=== PATIENT | female | born 1970 | race Caucasian/White ===

== ENCOUNTER 2017-06-13 16:34 | Emergency (ER) | payer OTHER ==
[2017-06-13 17:04] VITALS: BP 125/81; PULSE 92; TEMP 98.3; BMI 23.3
--- NOTE | 2017-06-13 17:04 | PDOC ---
Rapid Medical Evaluation Chief Complaint: Pain Time Seen by Provider: 06/13/17 17:02 Medical Evaluation: Allergies Allergy/AdvReac Type Severity Reaction Status Date / Time No Known Allergies Allergy Verified 06/13/17 16:58 06/13/17 17:02 The patient presents with a chief complaint of: Swelling and pain to the right fifth finger. Flexed. Pain to the right thumb. Has appointment with doctor on . ] I have performed a brief in-person evaluation of this patient. Pertinent physical exam findings: vss, [Right fifth finger, in flexed position. Unable to straighten. ] I have ordered the following: [Xray right hand] The patient will proceed to the ED for further evaluation. Discharge Disposition - Diagnosis Flexion deformity of finger - Referrals - Patient Instructions - Post Discharge Activity
--- NOTE | 2017-06-13 18:23 | PDOC ---
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 Patient states she noticed some pain to her right hand approximately 2 weeks ago and has gotten worse but denies fever, chills, nausea/vomiting, extremity numbness/tingling. Patient is unsure of any injury but noticed flexion of the right dip immediately while vigorously cleaning dishes at work. Pt states she just ate prior to coming into the ER and had a can of soda. Pt states she knows her glucose is high and refuses any tx here for hyperglycemia. Pt states she is very good with controlling her glucose at home. Timing/Duration: 1 week Past History - Past Medical History Allergies/Adverse Reactions: Allergies Allergy/AdvReac Type Severity Reaction Status Date / Time No Known Allergies Allergy Verified 06/13/17 16:58 COPD: No Diabetes: Yes HTN: Yes Hypercholesterolemia: Yes - Suicide/Smoking/Psychosocial Hx Smoking History: Never smoked Information on smoking cessation initiated: No Hx Alcohol Use: No Drug/Substance Use Hx: No Review of Systems - Review of Systems Able to Perform ROS?: Yes Comments:: 06/13/17 18:22 CONSTITUTIONAL: Absent: fever, chills, diaphoresis, generalized weakness, malaise, loss of appetite CARDIOVASCULAR: Absent: chest pain, loss of consciousness, palpitations, irregular heart rate, peripheral edema RESPIRATORY: Absent: cough, shortness of breath, dyspnea with exertion, orthopnea, wheezing, stridor, hemoptysis MUSCULOSKELETAL: +right 5th digit pain/flexed Absent: myalgia, arthralgia, joint swelling SKIN: Absent: rash, itching, pallor HEMATOLOGIC/IMMUNOLOGIC: Absent: easy bleeding, easy bruising, lymphadenopathy, frequent infections Is the patient limited Pashto proficient: No *Physical Exam - Vital Signs Last Vital Signs Temp Pulse Resp BP Pulse Ox 98.3 F 92 H 18 125/81 100 06/13/17 16:59 06/13/17 16:59 06/13/17 16:59 06/13/17 16:59 06/13/17 16:59 - Physical Exam Comments: 06/13/17 18:22 GENERAL: Well developed, well nourished. Awake and alert. No acute distress. CARDIOVASCULAR: Regular rate and rhythm. No murmurs, rubs, or gallops. Distal pulses are 2+ and symmetric. PULMONARY: No evidence of respiratory distress. Lungs clear to auscultation bilaterally. No wheezing, rales or rhonchi. ABDOMINAL: Soft. Non-tender. Non-distended. No rebound or guarding. No organomegaly. Normoactive bowel sounds. MUSCULOSKELETAL +Right 5th digit; flexed at dip/neg pain on palp/neg swelling/neg erythematous Cap refill <2sec EXCLUDING RIGHT 5TH DIGIT: Normal range of motion at all joints. No bony deformities or tenderness. No CVA tenderness. EXTREMITIES: No cyanosis. No clubbing. No edema. No calf tenderness. SKIN: Warm and dry. Normal capillary refill. No rashes. No jaundice. NEUROLOGICAL: Alert, awake, appropriate. Cranial nerves 2-12 intact. No deficits to light touch and temperature in face, upper extremities and lower extremities. No motor deficits in the in face, upper extremities and lower extremities. Normoreflexic in the upper and lower extremities. Normal speech. Toes are down- going bilaterally. Gait is normal without ataxia. ED Treatment Course - LABORATORY CBC & Chemistry Diagram: 06/13/17 19:00 06/13/17 19:00 - RADIOLOGY Radiograph Interpretation: 06/13/17 19:18 Xrau right hand: 3v neg fx/dislocations/ 5th digit flexed *DC/Admit/Observation/Transfer Diagnosis at time of Disposition: Hyperglycemia Flexion deformity of finger Qualifiers: Laterality: right Qualified Code(s): M21.241 - Flexion deformity, right finger joints Mallet finger Qualifiers: Laterality: right Qualified Code(s): M20.011 - Mallet finger of right finger(s) - Discharge Dispostion Disposition: HOME Condition at time of disposition: Stable Admit: No - Referrals Referrals: Jsutin Meraz MD [Staff Physician] - - Patient Instructions Printed Discharge Instructions: DI for Mallet Finger Additional Instructions: Ice; 20 mins on alternating with 20 mins off for 48 hours while awake. Rest Elevate Follow up with your orthopedic surgeon or the one listed on the discharge form. Return to the ER for severe/persistent/worsening symptoms, extremity numbness/ tingling sensation. Must follow up with your physician/carbonation tester within 48 hours. Pt aware of her glucose in the ER Print Language: POLISH - Post Discharge Activity
[2017-06-13 19:06] LABS: BASO % 0.8 % (0-2.0); EOS % 4.3 % (0-4.5); HEMATOCRIT 39.9 % (32.4-45.2); HEMOGLOBIN 13.3 GM/dL (10.7-15.3); MCH 28.1 pg (25.7-33.7); MCHC 33.3 g/dl (32.0-36.0); MEAN CELL VOLUME 84.4 fl (80-96); MEAN PLT VOLUME 9.1 fl (7.5-11.1); MONO % 7.3 % (3.8-10.2); NEUT % 65.6 % (42.8-82.8); PLATELET COUNT 303 K/MM3 (134-434); RBC 4.73 M/mm3 (3.60-5.2); RDW 13.8 % (11.6-15.6); WHITE BLOOD COUNT 7.4 K/mm3 (4.0-10.0)
[2017-06-13 19:51] LABS: ALBUMIN 3.6 g/dl (3.4-5.0); ALK PHOS 95 U/L (45-117); ANION GAP 7 (8-16); BILIRUBIN,TOTAL 0.3 mg/dL (0.2-1.0); BLOOD UREA NITROGEN 17 mg/dL (7-18); CALCIUM 9.1 mg/dL (8.5-10.1); CHLORIDE 103 mmol/L (98-107); CO2 27 mmol/L (21-32); CREATININE 0.6 mg/dL (0.55-1.02); POTASSIUM 4.2 mmol/L (3.5-5.1); SGOT/AST 15 U/L (15-37); SGPT/ALT 28 U/L (12-78); SODIUM 137 mmol/L (136-145); TOT PROT 7.9 g/dl (6.4-8.2)
[2017-06-13 19:56] LABS: GLUCOSE,RANDOM 336 mg/dL (74-106)
== END 2017-06-13 19:00 | disposition home or self-care (01) ==
LOC: JERFT 16:34
DX: M20.011 Mallet finger of right finger(s) (principal); M21.241 Flexion deformity, right finger joints; E11.65 Type 2 diabetes mellitus with hyperglycemia; I10 Essential (primary) hypertension; E78.00 Pure hypercholesterolemia, unspecified
CPT/HCPCS: 36415; 73130-TC-RT; 80053; 85025; 99281-25

== ENCOUNTER 2018-04-10 14:13 | Emergency (ER) | payer OTHER ==
[2018-04-10] MEDS ORDERED: ASPIRIN 81 MG CHEWABLE TABLETS PO ONE (14:22)
[2018-04-10 14:24] VITALS: TEMP 98.8; BMI 23.3
--- NOTE | 2018-04-10 14:25 | PDOC ---
Rapid Medical Evaluation Chief Complaint: Chest Pain Time Seen by Provider: 04/10/18 14:20 Medical Evaluation: Allergies Allergy/AdvReac Type Severity Reaction Status Date / Time No Known Allergies Allergy Verified 06/13/17 16:58 04/10/18 14:21 48 year old female c/o chest pain radiating to back x 3 days. worse at night aand pain is worse deep breath. denies smoking, recent travel, prolonged sitting. Pmhx: hypertension, diabetes PE: patient alert ox3. breath sounds, regular rate A: chest pain P: labs EKG chest xray patient to the ER for further management of care. 04/10/18 14:24 Discharge Disposition - Diagnosis Chest pain Qualifiers: Chest pain type: chest pain on breathing Qualified Code(s): R07.1 - Chest pain on breathing; R07.81 - Pleurodynia - Referrals - Patient Instructions - Post Discharge Activity
[2018-04-10] MEDS ORDERED: ASPIRIN 81 MG CHEWABLE TABLETS ONE (14:31)
[2018-04-10 15:17] LABS: BASO % 1.1 % (0-2.0); HEMOGLOBIN 12.1 GM/dL (10.7-15.3); LYMPH % 27.3 % (8-40); MCH 28.8 pg (25.7-33.7); MCHC 32.6 g/dl (32.0-36.0); MEAN CELL VOLUME 88.2 fl (80-96); MONO % 7.6 % (3.8-10.2); PLATELET COUNT 235 K/MM3 (134-434); RDW 13.5 % (11.6-15.6); WHITE BLOOD COUNT 6.2 K/mm3 (4.0-10.0)
[2018-04-10 15:31] LABS: INR 0.9 (0.83-1.09); PROTHROMBIN TIME (PATIENT) 10.6 SEC (9.7-13.0)
[2018-04-10 15:44] LABS: ALBUMIN 3.6 g/dl (3.4-5.0); ALK PHOS 90 U/L (45-117); ANION GAP 8 MMOL/L (8-16); BILIRUBIN,TOTAL 0.7 mg/dL (0.2-1); BLOOD UREA NITROGEN 16 mg/dL (7-18); CALCIUM 8.5 mg/dL (8.5-10.1); CHLORIDE 103 mmol/L (98-107); CO2 27 mmol/L (21-32); CREATININE 0.9 mg/dL (0.55-1.3); GLUCOSE,RANDOM 246 mg/dL (74-106); MAGNESIUM 1.9 mg/dL (1.8-2.4); POTASSIUM 4.1 mmol/L (3.5-5.1); SGOT/AST 18 U/L (15-37); SGPT/ALT 33 U/L (13-61); SODIUM 138 mmol/L (136-145); TOT PROT 7.2 g/dl (6.4-8.2)
--- NOTE | 2018-04-10 15:50 | PDOC ---
History of Present Illness - General Chief Complaint: Chest Pain Stated Complaint: CHEST PAIN Time Seen by Provider: 04/10/18 14:20 History Source: Patient Exam Limitations: No Limitations - History of Present Illness Initial Comments: 04/10/18 16:12 48y F DM, HTN, HL, persents with complaint of chest pain - the patient endorses intermittent sharp substernal chest pain since last night. Patient the pain lasts seconds to proximal 1 min, the patient denies associated diaphoresis, nausea, vomiting, cough, hemoptysis, fever, chills. The patient does note some shortness of breath associated with her chest pain and she does note that the pain seems to worsen a little bit with deep breaths more so this morning. The patient denies any lightheadedness. She never had this in the past. No known cardiac history No family history of cadiac history denies smoking, IVDU, cocaine use, no eto abuse Past History - Past Medical History Allergies/Adverse Reactions: Allergies Allergy/AdvReac Type Severity Reaction Status Date / Time No Known Allergies Allergy Verified 04/10/18 14:24 COPD: No Diabetes: Yes HTN: Yes Hypercholesterolemia: Yes - Suicide/Smoking/Psychosocial Hx Smoking History: Never smoked Hx Alcohol Use: No Drug/Substance Use Hx: No Review of Systems - Review of Systems Able to Perform ROS?: Yes Comments:: 04/10/18 16:16 Constitutional - no reported Fever, Chills, HEENT: no reported vision changes, sore throat Respiratory: no reported cough, sob, hemoptysis Cardiac: +chest pain, no reported palpitations, light headedness, leg swelling Abd/GI: no reported abd pain, nausea, vomiting, blood per rectum, melena, diarrhea : no reported dysuria, frequency, discharge Musculskelatal - no reported back pain, joint swelling skin - no reported bruising, erythema, rash neurological: no reported headache, numbness, focal weakness, tingling, ataxia, hematologic: no reported easy bruising, easy bleeding *Physical Exam - Vital Signs Last Vital Signs Temp Pulse Resp BP Pulse Ox 98.8 F 94 H 18 144/51 L 98 04/10/18 14:15 04/10/18 14:15 04/10/18 14:15 04/10/18 14:15 04/10/18 14:15 - Physical Exam Comments: 04/10/18 16:17 GENERAL: The patient is awake, alert, and fully oriented, Nontoxic - in no acute distress. HEAD: Normocephalic, atraumatic. EYES: extraocular movements intact, sclera anicteric, conjunctiva clear. ENT: Normal voice, Moist mucous membranes. NECK: Normal range of motion, supple LUNGS: Breath sounds equal, clear to auscultation bilaterally. No wheezes, no rhonchi, no rales. HEART: Regular rate and rhythm, normal S1 and S2 without murmur, rub or gallop. ABDOMEN: Soft, nontender, normoactive bowel sounds. No guarding, no rebound. . No CVA tenderness EXTREMITIES: Normal range of motion, no edema. No clubbing or cyanosis. No cords, erythema, or tenderness. NEUROLOGICAL: No facial assymetry, Normal speech, PSYCH: Normal mood, normal affect. SKIN: Warm, Dry, normal turgor, Heart Score/ECG Review - ECG Impressions Comment:: 04/10/18 16:17 Twelve-lead EKG was performed and reviewed by me. There is normal sinus rhythm with a normal rate. Rate of 90 Incomplete right bundle branch block no prior ekg for comparison ED Treatment Course - LABORATORY CBC & Chemistry Diagram: 04/10/18 14:28 04/10/18 14:28 - ADDITIONAL ORDERS Additional order review: Laboratory Results 04/10/18 04/10/18 04/10/18 14:28 14:28 14:28 WBC RBC Hgb Hct MCV MCH MCHC RDW Plt Count MPV Absolute Neuts (auto) Neutrophils % Lymphocytes % Monocytes % Eosinophils % Basophils % Nucleated RBC % PT with INR 10.60 INR 0.90 D-Dimer < 215 Sodium 138 Potassium 4.1 Chloride 103 Carbon Dioxide 27 Anion Gap 8 BUN 16 Creatinine 0.9 Creat Clearance w eGFR > 60 Random Glucose 246 H Calcium 8.5 Magnesium 1.9 Total Bilirubin 0.7 AST 18 ALT 33 Alkaline Phosphatase 90 Creatine Kinase 172 Troponin I < 0.02 Total Protein 7.2 Albumin 3.6 04/10/18 14:28 WBC 6.2 RBC 4.20 Hgb 12.1 Hct 37.0 MCV 88.2 MCH 28.8 MCHC 32.6 RDW 13.5 Plt Count 235 D MPV 10.0 Absolute Neuts (auto) 3.6 Neutrophils % 58.0 Lymphocytes % 27.3 D Monocytes % 7.6 Eosinophils % 6.0 H Basophils % 1.1 Nucleated RBC % 0 PT with INR INR D-Dimer Sodium Potassium Chloride Carbon Dioxide Anion Gap BUN Creatinine Creat Clearance w eGFR Random Glucose Calcium Magnesium Total Bilirubin AST ALT Alkaline Phosphatase Creatine Kinase Troponin I Total Protein Albumin 04/10/18 14:28 RBC 4.20 MCV 88.2 MCHC 32.6 RDW 13.5 MPV 10.0 Neutrophils % 58.0 Lymphocytes % 27.3 D Monocytes % 7.6 Eosinophils % 6.0 H Basophils % 1.1 - Medications Given in the ED: ED Medications Discontinued Medications Generic Name Dose Route Start Last Admin Trade Name Freq PRN Reason Stop Dose Admin Aspirin 162 mg 04/10/18 14:22 04/10/18 14:34 Asa - PO 04/10/18 14:23 162 mg ONCE ONE Administration Medical Decision Making - Medical Decision Making 04/10/18 16:18 48-year-old female history of diabetes, hypertension, hypokalemia presenting with intermittent episodes of sharp chest pain lasting for seconds to 1 minute at a time associated with some shortness of breath sometimes pleuritic. no Family or personal history of cardiac disease. On exam the patient is well appearing,, no acute distress The patient was originally seen in our any with labs and d-dimer obtained. The patient's d-dimer is negative CBC, troponin, electrolytes are negative. We'll obtain second troponin at 4 hours. anticipate discharge with primary care and cardiology follow-up *DC/Admit/Observation/Transfer Diagnosis at time of Disposition: Chest pain Qualifiers: Chest pain type: chest pain on breathing Qualified Code(s): R07.1 - Chest pain on breathing - Referrals - Patient Instructions - Post Discharge Activity
--- NOTE | 2018-04-10 19:21 | PDOC ---
*Physical Exam - Vital Signs Last Vital Signs Temp Pulse Resp BP Pulse Ox 98.8 F 90 18 144/51 L 100 04/10/18 14:15 04/10/18 15:44 04/10/18 14:15 04/10/18 14:15 04/10/18 15:44 ED Treatment Course - LABORATORY CBC & Chemistry Diagram: 04/10/18 14:28 04/10/18 14:28 - ADDITIONAL ORDERS Additional order review: Laboratory Results 04/10/18 04/10/18 04/10/18 14:28 14:28 14:28 PT with INR 10.60 INR 0.90 D-Dimer < 215 Sodium 138 Potassium 4.1 Chloride 103 Carbon Dioxide 27 Anion Gap 8 BUN 16 Creatinine 0.9 Creat Clearance w eGFR > 60 Random Glucose 246 H Calcium 8.5 Magnesium 1.9 Total Bilirubin 0.7 AST 18 ALT 33 Alkaline Phosphatase 90 Creatine Kinase 172 Creatine Kinase Index 2.9 CK-MB (CK-2) 5.1 H Troponin I < 0.02 Total Protein 7.2 Albumin 3.6 04/10/18 14:28 RBC 4.20 MCV 88.2 MCHC 32.6 RDW 13.5 MPV 10.0 Neutrophils % 58.0 Lymphocytes % 27.3 D Monocytes % 7.6 Eosinophils % 6.0 H Basophils % 1.1 - Medications Given in the ED: ED Medications Discontinued Medications Generic Name Dose Route Start Last Admin Trade Name Darryl PRN Reason Stop Dose Admin Aspirin 162 mg 04/10/18 14:22 04/10/18 14:34 Asa - PO 04/10/18 14:23 162 mg ONCE ONE Administration Medical Decision Making - Medical Decision Making 04/10/18 19:19 Dr Jaquez was able to obtain a recent stress test and after discussion with Dr. 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
[2018-04-10 20:06] VITALS: BP 100/50; PULSE 80
--- NOTE | 2018-04-11 10:32 | EKG ---
Test Reason : Blood Pressure : / mmHG Vent. Rate : 090 BPM Atrial Rate : 090 BPM P-R Int : 134 ms QRS Dur : 098 ms QT Int : 360 ms P-R-T Axes : 061 022 054 degrees QTc Int : 440 ms NORMAL SINUS RHYTHM INCOMPLETE RIGHT BUNDLE BRANCH BLOCK SEPTAL INFARCT , AGE UNDETERMINED ABNORMAL ECG NO PREVIOUS ECGS AVAILABLE Confirmed by Conrad Higgins MD ([id number]) on 04/11/2018 10:32:36 AM Referred By: Confirmed By:Conrad Higgins MD
--- NOTE | 2018-04-11 11:36 | EKG ---
Test Reason : Blood Pressure : / mmHG Vent. Rate : 090 BPM Atrial Rate : 090 BPM P-R Int : 132 ms QRS Dur : 086 ms QT Int : 350 ms P-R-T Axes : 052 016 053 degrees QTc Int : 428 ms NORMAL SINUS RHYTHM SEPTAL INFARCT (CITED ON OR BEFORE 10-APR-2018) ABNORMAL ECG WHEN COMPARED WITH ECG OF 10-APR-2018 14:25, INCOMPLETE RIGHT BUNDLE BRANCH BLOCK IS NO LONGER PRESENT Confirmed by Conrad Higgins MD ([id number]) on 04/11/2018 11:36:25 AM Referred By: Confirmed By:Conrad Higgins MD
== END 2018-04-10 21:55 | disposition home or self-care (01) ==
LOC: JER 14:13
DX: R07.1 Chest pain on breathing (principal); I10 Essential (primary) hypertension; E11.9 Type 2 diabetes mellitus without complications; E78.00 Pure hypercholesterolemia, unspecified
CPT/HCPCS: 36415; 71046-TC-FY; 80053; 82550; 82553; 83735; 84484; 85025; 85379; 85610; 93005; 93010; 99285-25

== ENCOUNTER 2018-06-03 17:26 | Emergency (ER) | payer OTHER ==
[2018-06-03 17:59] VITALS: BP 115/63; PULSE 93; TEMP 98.5; BMI 23.3
[2018-06-03] MEDS ORDERED: KETOROLAC TROMETHAMINE 15 MG/ML VIAL IM ONE (19:35)
[2018-06-03] MEDS ORDERED: ALBUTEROL SO4 2.5/IPRATROPIUM 0.5 INH SOL 3 ML VIAL.NEB. NEB ONE ×2 (19:35→19:50)
--- NOTE | 2018-06-03 19:35 | PDOC ---
History of Present Illness - General Chief Complaint: Cold Symptoms Stated Complaint: PAIN, ACUTE Time Seen by Provider: 06/03/18 19:14 History Source: Patient Exam Limitations: No Limitations Past History - Travel Traveled outside of the country in the last 30 days: No Close contact w/someone who was outside of country & ill: No - Past Medical History Allergies/Adverse Reactions: Allergies Allergy/AdvReac Type Severity Reaction Status Date / Time No Known Allergies Allergy Verified 04/10/18 14:24 Home Medications: Ambulatory Orders Albuterol Sulfate Inhaler - [Ventolin HFA Inhaler -] 1 - 2 inh PO Q4H #1 inhaler 06/03/18 Guaifenesin AC [Robitussin AC] 10 ml PO HS #100 ml MDD 1 06/03/18 Methylprednisolone [Medrol Dose Reyes] 4 mg PO ASDIR #21 tablet 06/03/18 COPD: No Diabetes: Yes HTN: Yes Hypercholesterolemia: Yes - Immunization History Immunization Up to Date: Yes - Suicide/Smoking/Psychosocial Hx Smoking History: Never smoked Hx Alcohol Use: No Drug/Substance Use Hx: No Review of Systems - Review of Systems Able to Perform ROS?: Yes Comments:: 06/03/18 22:32 CONSTITUTIONAL: Absent: fever, chills, diaphoresis, generalized weakness, malaise, loss of appetite HEENT: Absent: rhinorrhea, nasal congestion, throat pain, throat swelling, difficulty swallowing, mouth swelling, ear pain, eye pain, visual Changes CARDIOVASCULAR: Absent: chest pain, loss of consciousness, palpitations, irregular heart rate, peripheral edema RESPIRATORY: Absent: cough, shortness of breath, dyspnea with exertion, orthopnea, wheezing, stridor, hemoptysis GASTROINTESTINAL: Absent: abdominal pain, abdominal distension, nausea, vomiting, diarrhea, constipation, melena, hematochezia GENITOURINARY: Absent: dysuria, frequency, urgency, hesitancy, hematuria, flank pain, genital pain MUSCULOSKELETAL: Absent: myalgia, arthralgia, joint swelling SKIN: Absent: rash, itching, pallor HEMATOLOGIC/IMMUNOLOGIC: Absent: easy bleeding, easy bruising, lymphadenopathy, frequent infections ENDOCRINE: Absent: unexplained weight gain, unexplained weight loss, heat intolerance, cold intolerance NEUROLOGIC: Absent: headache, focal weakness or paresthesias, dizziness, unsteady gait, seizure, mental status changes, bladder or bowel incontinence PSYCHIATRIC: Absent: anxiety, depression, suicidal or homicidal ideation, hallucinations. Is the patient limited Romansh proficient: No *Physical Exam - Vital Signs Last Vital Signs Temp Pulse Resp BP Pulse Ox 98.5 F 93 H 16 115/63 99 06/03/18 17:56 06/03/18 17:56 06/03/18 17:56 06/03/18 17:56 06/03/18 17:56 - Physical Exam Comments: 06/03/18 22:32 GENERAL: Well developed, well nourished. Awake and alert. No acute distress. HEENT: Normocephalic, atraumatic. PERRLA, EOMI. No conjunctival pallor. Sclera are non- icteric. Moist mucous membranes. Oropharynx is clear. NECK: Supple. Full ROM. No JVD. Carotid pulses 2+ and symmetric, without bruits. No thyromegaly. No lymphadenopathy. CARDIOVASCULAR: Regular rate and rhythm. No murmurs, rubs, or gallops. Distal pulses are 2+ and symmetric. PULMONARY: No evidence of respiratory distress. Lungs clear to auscultation bilaterally. No wheezing, rales or rhonchi. ABDOMINAL: Soft. Non-tender. Non-distended. No rebound or guarding. No organomegaly. Normoactive bowel sounds. MUSCULOSKELETAL Normal range of motion at all joints. No bony deformities or tenderness. No CVA tenderness. EXTREMITIES: No cyanosis. No clubbing. No edema. No calf tenderness. SKIN: Warm and dry. Normal capillary refill. No rashes. No jaundice. NEUROLOGICAL: Alert, awake, appropriate. Cranial nerves 2-12 intact. No deficits to light touch and temperature in face, upper extremities and lower extremities. No motor deficits in the in face, upper extremities and lower extremities. Normoreflexic in the upper and lower extremities. Normal speech. Toes are down- going bilaterally. Gait is normal without ataxia. PSYCHIATRIC: Cooperative. Good eye contact. Appropriate mood and affect. Moderate Sedation - Procedure Monitoring Vital Signs: Procedure Monitoring Vital Signs Temperature 98.5 F 06/03/18 17:56 Pulse Rate 93 H 06/03/18 17:56 Respiratory Rate 16 06/03/18 17:56 Blood Pressure 115/63 06/03/18 17:56 O2 Sat by Pulse Oximetry (%) 99 06/03/18 17:56 *DC/Admit/Observation/Transfer Diagnosis at time of Disposition: Bronchitis - Discharge Dispostion Disposition: HOME Condition at time of disposition: Stable Decision to Admit order: No - Referrals Referrals: Devin Caballero MD [Staff Physician] - - Patient Instructions Printed Discharge Instructions: DI for Acute Bronchitis Additional Instructions: You have bronchitis Your flu test was negative today Please take the albuterol inhaler every 4 hours Please take the medrol dose pack as prescribed You may use the cough syrup at night before bed. Do not drink or drive after taking this medication as it may make you sleepy Follow up with your primary care doctor this week Return to the ED for worsening cough, fever, vomiting, or if you have any changes in your symptoms Tienes bronquitis Tu prueba de gripe fue negativa hoy Por favor tome el inhalador de albuterol cada 4 horas. Por favor tome el paquete de dosis de medrol segn lo prescrito Puede usar el jarabe para la tos en la noche antes de acostarse. No afshin ni maneje despus de luther srinivasan medicamento, ya que puede causarle sueo Bree un seguimiento con fernandes mdico de atencin primaria esta semana. Regrese a la shania de emergencias para empeorar la tos, la fiebre, los vmitos o si tiene algn cambio en murali sntomas. Print Language: COOK ISLANDER - Post Discharge Activity Forms/Work/School Notes: Back to Work
[2018-06-03] MEDS ORDERED: KETOROLAC TROMETHAMINE 15 MG/ML VIAL ONE (19:50)
== END 2018-06-03 21:45 | disposition home or self-care (01) ==
LOC: JERFT 17:26
PROC: 3E0F7GC Introduction of Other Therapeutic Substance into Respiratory Tract, Via Natural or Artificial Opening (ICD-10-PCS; principal; 2018-06-03)
PROC: 3E0233Z Introduction of Anti-inflammatory into Muscle, Percutaneous Approach (ICD-10-PCS; 2018-06-03)
DX: J40 Bronchitis, not specified as acute or chronic (principal); I10 Essential (primary) hypertension; E11.9 Type 2 diabetes mellitus without complications; E78.00 Pure hypercholesterolemia, unspecified
CPT/HCPCS: 71046-TC-FY; 87804; 94640; 96372; 99281-25

== ENCOUNTER 2019-04-04 00:05 | Emergency (ER) | payer OTHER ==
[2019-04-04 00:58] VITALS: TEMP 97.9; BMI 24.7
[2019-04-04] MEDS ORDERED: SODIUM CHLORIDE 0.9% 500 ML INFUS.BAG IV ONE (01:18)
[2019-04-04] MEDS ORDERED: ONDANSETRON 4 MG/2 ML VIAL IVPUSH ONE (01:19)
[2019-04-04] MEDS ORDERED: ONDANSETRON 4 MG/2 ML VIAL ONE (01:23)
--- NOTE | 2019-04-04 01:27 | PDOC ---
History of Present Illness - General Chief Complaint: Chest Pain Stated Complaint: CHEST PAIN Time Seen by Provider: 04/04/19 01:09 - History of Present Illness Initial Comments: 04/04/19 01:20 49 y/o female with a PMH of IDDM, HTN who presents to our ED c/o 2 day h/o abdominal pain. Pain is sharp, diffuse, constant and associated with multiple episodes of yellowish emesis. No fevers/chills. Last BM prior to presentation today and was normal. No dysuria/hematuria. Reports she was evaluated at [facility] earlier this week, presents discharge instructions for generalized abdominal pain and gastroenteritis. at bedside states patient was told by the doctor at [facility] patient might be . LMP was four months previous. Past History - Past Medical History Allergies/Adverse Reactions: Allergies Allergy/AdvReac Type Severity Reaction Status Date / Time No Known Allergies Allergy Verified 04/04/19 00:58 Home Medications: Ambulatory Orders Ondansetron [Zofran *Odt*] 4 mg SL BID PRN #6 od.tablet 04/04/19 COPD: No Diabetes: Yes HTN: Yes Hypercholesterolemia: Yes - Immunization History Immunization Up to Date: Yes - Psycho Social/Smoking Cessation Hx Smoking History: Never smoked Hx Alcohol Use: No Drug/Substance Use Hx: No Review of Systems - Review of Systems Constitutional: No: Chills, Fever HEENTM: No: Recent change in vision Respiratory: No: Cough, Shortness of Breath Cardiac (ROS): No: Chest Pain, Lightheadedness, Palpitations ABD/GI: Yes: Nausea, Vomiting, Abdominal cramping. No: Constipated, Diarrhea : No: Burning, Hematuria *Physical Exam - Vital Signs Last Vital Signs Temp Pulse Resp BP Pulse Ox 97.9 F 94 H 18 193/91 H 99 04/04/19 00:57 04/04/19 00:57 04/04/19 00:57 04/04/19 00:57 04/04/19 00:57 - Physical Exam Comments: 04/04/19 01:24 Triage VS reviewed Non-toxic appearing Abdomen:Soft abdomen with mild epigastric TTP w/o peritoneal sign CV: S1, S2, RRR Respiratory: CLTA B/L, no wheeze Neuro: A&O x3, CN II-XII intact ED Treatment Course - LABORATORY CBC & Chemistry Diagram: 04/04/19 01:10 04/04/19 01:10 - RADIOLOGY Radiology Studies Ordered: Category Date Time Status GALLBLADDER US [US] Stat Ultrasound 04/04/19 01:19 Ordered Medical Decision Making - Medical Decision Making 04/04/19 01:27 49 y/o female with abdominal pain + multiple episodes emesis Hypertensive @ presentation w/epigastric TTP. Will evaluate for cholecystitis, bilary colic, gastroenteritis, . Also consider abdominal pain as anginal equivalent. PLAN: CBC/CMP, Lipase, Serum , Troponin, EKG, GB U/S, possible CTAP 04/04/19 03:18 Serum negative No acute cholecystitis on ultrasound Troponin (-) x1, EKG non-ischemic as documented in EKG section of EMR As patient continues to have persistent abdominal TTP will obtain CTAP with IV contrast 04/04/19 04:28 CTAP shows multiple uterine fibroids + 2.2 L ovarian cyst w/o free fluid UA pending 04/04/19 05:59 UA significant for 2+ blood - possibly 2/2 to fibroids; patient requires transfer worker evaluation as outpatient. Will discharge with transfer worker referral as well as referral to primary care (patient states her PMD recently retired). Return precautions discussed. Counseled to continue using Famotidine and Zofran prescribed from [facility]. I discussed the physical exam findings, ancillary test results and final diagnoses with the patient. I answered all of the patient's questions. The patient was satisfied with the care received and felt comfortable with the discharge plan and treatment plan. The patient will return to the Emergency Department with any new, persistent or worsening symptoms. Discharge - Discharge Information Problems reviewed: Yes Clinical Impression/Diagnosis: Abdominal pain Condition: Good Disposition: HOME - Admission No - Additional Discharge Information Prescriptions: Ondansetron [Zofran *Odt*] 4 mg SL BID PRN #6 od.tablet PRN Reason: Nausea And/Or Vomiting - Follow up/Referral Referrals: Devin Caballero MD [Staff Physician] - Angelina Singh MD [Staff Physician] - - Patient Discharge Instructions Patient Printed Discharge Instructions: DI for Uterine Fibroids Additional Instructions: Usted fue evaluado hoy por fernandes dolor abdominal. Max ecografa de la vescula biliar y un escner de fernandes abdomen no mostraron hallazgos preocupantes. En srinivasan momento est seguro para el verona en el hogar. Contine tomando los medicamentos recetados en fernandes visita a [facility]. Inez puede luther Motrin (hasta 3200 mg diarios en total) alternando con Tylenol ( hasta 4000 mg diarios en total) cada 4-6 horas para fernandes dolor. Debe ir a un mdico de atencin primaria para max evaluacin adicional y ellos pueden evaluarlo completamente por fernandes dolor. Hemos proporcionado max referencia a un mdico de atencin primaria, as kev max referencia a un gineclogo. Regrese al Departamento de Emergencias por cualquier sntoma nuevo / que empeore / relacionado. You were evaluated today for your abdominal pain. An ultrasound of your gallbladder and a cat scan of your abdomen showed no concerning findings. At this time you are safe for discharge home. Continue to take the medications prescribed by your visit to [facility]. You can also take Motrin (up to 3200 mg daily total) alternating with Tylenol (up to 4000 mg daily total) every 4-6 hours for your pain. You must go see a primary care doctor for further evaluation and they can fully evaluate you for your pain. We have provided a referral to a primary care doctor as well as a referral to a mill order scheduler. Return to the Emergency Department for any new/worsening/concerning symptoms. Print Language: AZERBAIJANI - Post Discharge Activity
[2019-04-04 01:34] LABS: HEMATOCRIT 36.3 % (32.4-45.2); HEMOGLOBIN 12.6 GM/dL (10.7-15.3); LYMPH % 10.1 % (8-40); MCH 31.3 pg (25.7-33.7); MCHC 34.8 g/dl (32.0-36.0); MEAN CELL VOLUME 89.9 fl (80-96); MONO % 5.9 % (3.8-10.2); PLATELET COUNT 198 K/MM3 (134-434); RBC 4.04 M/mm3 (3.60-5.2); RDW 12.9 % (11.6-15.6); WHITE BLOOD COUNT 10.5 K/mm3 (4.0-10.0)
--- NOTE | 2019-04-04 01:34 | PDOC ---
Attending Attestation - Resident Resident Name: Maria FernandaCher - ED Attending Attestation I have performed the following: I have examined & evaluated the patient, The case was reviewed & discussed with the resident, I agree w/resident's findings & plan - HPI HPI: 04/04/19 05:32 agree with resident hpi - Physicial Exam PE: 04/04/19 05:33 see resident exam - Medical Decision Making 04/04/19 05:33 49-year-old female with abdominal pain and vomiting CT scan of the abdomen significant only for fibroids and a small ovarian cyst Patient improved after IV fluids and Zofran Plan for DC with primary care follow-up, Zofran ODT as needed
[2019-04-04 02:32] LABS: ALBUMIN 3.7 g/dl (3.4-5.0); ALK PHOS 70 U/L (45-117); ANION GAP 8 MMOL/L (8-16); BILIRUBIN,TOTAL 1.2 mg/dL (0.2-1); BLOOD UREA NITROGEN 23.5 mg/dL (7-18); CALCIUM 8.9 mg/dL (8.5-10.1); CHLORIDE 103 mmol/L (98-107); CO2 27 mmol/L (21-32); CREATININE 0.8 mg/dL (0.55-1.3); GLUCOSE,RANDOM 273 mg/dL (74-106); LIPASE 70 U/L (73-393); SGOT/AST 25 U/L (15-37); SGPT/ALT 41 U/L (13-61); SODIUM 137 mmol/L (136-145); TOT PROT 7.4 g/dl (6.4-8.2)
[2019-04-04] MEDS ORDERED: ACETAMINOPHEN 1000 MG/100 ML VIAL (NON FORMULARY) IVPB ONE (03:12)
[2019-04-04] MEDS ORDERED: ACETAMINOPHEN INJECTION 100 ML IVPB ONE (03:14)
[2019-04-04 03:19] VITALS: BP 159/81; PULSE 92
[2019-04-04 05:26] LABS: URINE APPEARANCE Cloudy; URINE BILIRUBIN Negative (NEGATIVE); URINE COLOR Yellow; URINE GLUCOSE (UA) 2+ (NEGATIVE); URINE KETONE 2+ (NEGATIVE); URINE LEUK ESTERASE Negative (NEGATIVE); URINE NITRITE Negative (NEGATIVE); URINE PROTEIN 3+ (NEGATIVE); URINE UROBILINOGEN 0.2 mg/dL (0.2-1.0)
[2019-04-04 06:04] LABS: EPI CELLS 9 /HPF (0-5/HPF); HYALINE CASTS 9 /lpf (0-8); URINE BACTERIA 560 /hpf (NEGATIVE); URINE RBC 25 /hpf (0-4); URINE WBC 5 /hpf (0-5)
--- NOTE | 2019-04-05 12:40 | EKG ---
Test Reason : Blood Pressure : / mmHG Vent. Rate : 096 BPM Atrial Rate : 096 BPM P-R Int : 166 ms QRS Dur : 090 ms QT Int : 344 ms P-R-T Axes : 075 002 073 degrees QTc Int : 434 ms NORMAL SINUS RHYTHM SEPTAL INFARCT (CITED ON OR BEFORE 10-APR-2018) ABNORMAL ECG WHEN COMPARED WITH ECG OF 10-APR-2018 15:35, NO SIGNIFICANT CHANGE WAS FOUND Confirmed by TARA ZAVALA, YAIR ([id number]) on 04/05/2019 12:40:02 PM Referred By: Confirmed By:YAIR PACHECO MD
--- NOTE | 2019-04-08 20:30 | EKG ---
Test Reason : Blood Pressure : / mmHG Vent. Rate : 088 BPM Atrial Rate : 088 BPM P-R Int : 132 ms QRS Dur : 090 ms QT Int : 378 ms P-R-T Axes : 068 -14 045 degrees QTc Int : 457 ms NORMAL SINUS RHYTHM POSSIBLE LEFT ATRIAL ENLARGEMENT SEPTAL INFARCT (CITED ON OR BEFORE 10-APR-2018) ABNORMAL ECG WHEN COMPARED WITH ECG OF 04-APR-2019 00:31, QUESTIONABLE CHANGE IN INITIAL FORCES OF SEPTAL LEADS Confirmed by SHANDA NEGRETE MD ([id number]) on 04/08/2019 8:30:29 PM Referred By: Confirmed By:SHANDA NEGRETE MD
== END 2019-04-04 06:20 | disposition home or self-care (01) ==
LOC: JER 00:05
PROC: 3E033NZ Introduction of Analgesics, Hypnotics, Sedatives into Peripheral Vein, Percutaneous Approach (ICD-10-PCS; principal; 2019-04-04)
PROC: 3E033GC Introduction of Other Therapeutic Substance into Peripheral Vein, Percutaneous Approach (ICD-10-PCS; 2019-04-04)
PROC: 3E0337Z Introduction of Electrolytic and Water Balance Substance into Peripheral Vein, Percutaneous Approach (ICD-10-PCS; 2019-04-04)
DX: R10.84 Generalized abdominal pain (principal); I10 Essential (primary) hypertension; E11.9 Type 2 diabetes mellitus without complications; E78.00 Pure hypercholesterolemia, unspecified
CPT/HCPCS: 36415; 74177-TC; 76705-TC; 80053; 81003; 82550; 82553; 83690; 84484; 84703; 85025; 87086; 93005; 93010; 96361; 96374; 96375; 99284-25; J0131

== ENCOUNTER 2020-11-04 03:39 | Emergency (ER) | payer OTHER ==
[2020-11-04 03:44] VITALS: TEMP 98.4; BMI 27.3
[2020-11-04 04:45] VITALS: BP 117/58; PULSE 82
== END 2020-11-04 04:45 | disposition short-term general hospital (02) ==
LOC: JER 03:39
DX: H53.141 Visual discomfort, right eye (principal); H57.11 Ocular pain, right eye
CPT/HCPCS: 99285-25